=== PATIENT | female | born 1990 | race Caucasian/White ===

== ENCOUNTER 2016-10-15 04:18 | Emergency (ER) | payer OTHER | END 2016-10-15 05:36 | disposition home or self-care (01) | LOC: ER 04:18 | DX: L50.9 Urticaria, unspecified (principal); R06.02 Shortness of breath; R11.0 Nausea; F41.9 Anxiety disorder, unspecified; Z88.8 Allergy status to other drugs, medicaments and biological substances | CPT/HCPCS: 96374; 96375 ==